=== PATIENT | female | born 1965 | race Caucasian/White ===

== ENCOUNTER 2016-08-30 09:04 | Inpatient (IN) | payer OTHER ==
[2016-08-30] MEDS ORDERED: NS 1,000 ML IV ONE (09:28)
[2016-08-30] MEDS ORDERED: HYDROmorphONE/DILAUDID 1 MG/ML SYR IVP ONE ×3 (09:28→19:00)
[2016-08-30] MEDS ORDERED: ONDANSETRON 4 MG/2 ML VIAL ONE (09:30)
[2016-08-30 09:36] LABS: % IMMATURE GRANULYOCYTES 0.2 % (0.0-1.1); ABSOLUTE IMMATURE GRANULOCYTES 0.02 10^3/uL (0.00-0.10); ADD DIFF? NO; ADD MORPH? NO; ADD SCAN? NO; ATYPICAL LYMPHOCYTE FLAG 0 (0-99); FRAGMENT RBC FLAG 0 (0-99); HEMATOCRIT 40.9 % (38.0-47.0); HEMOGLOBIN 13.8 g/dL (12.6-16.3); LEFT SHIFT FLG 90 (0-99); LIPEMIA HEMOLYSIS FLAG 80 (0-99); MEAN CELL HEMOGLOBIN 32.5 pg (27.9-34.1); MEAN CELL HEMOGLOBIN CONCENTR. 33.7 g/dL (32.4-36.7); MEAN CELL VOLUME 96.5 fL (81.5-99.8); MEAN PLATELET VOLUME 9.9 fL (8.7-11.7); PLATELET CLUMPS FLAG 0 (0-99); PLATELET COUNT 179 10^3/uL (150-400); RED BLOOD CELL COUNT 4.24 10^6/uL (4.18-5.33); RED CELL DISTRIBUTION WIDTH 12.6 % (11.5-15.2)
[2016-08-30] MEDS ORDERED: ONDANSETRON 4 MG/2 ML VIAL IVP ONE (09:40)
[2016-08-30 09:57] LABS: ALANINE AMINOTRANSFERASE 34 IU/L (9-52); ALBUMIN 4.1 g/dL (3.5-5.0); ALKALINE PHOSPHATASE 67 IU/L (38-126); ANION GAP 9 mEq/L (8-16); ASPARTATE AMINOTRANSFERASE 24 IU/L (14-46); BILIRUBIN,TOTAL 1.3 mg/dL (0.1-1.4); BILIRUBIN-CONJUGATED 0.3 mg/dL (0.0-0.5); CALCIUM 9.1 mg/dL (8.5-10.4); CARBON DIOXIDE 22 mEq/l (22-31); CHLORIDE 108 mEq/L (97-110); CREATININE 0.7 mg/dL (0.6-1.0); GLOMERULAR FILTRATION RATE > 60; GLUCOSE 98 mg/dL (70-100); SODIUM 139 mEq/L (134-144)
[2016-08-30] MEDS ORDERED: IOPAMIDOL (ISOVUE-300) 100 ML BTL IV ONE (10:06)
[2016-08-30] MEDS ORDERED: ERTAPENEM 1 GM in NS 100 ML IV ONE (10:52)
[2016-08-30] MEDS ORDERED: ALBUTEROL 60 PUFFS/8 GM MDI IH PRN (12:52)
[2016-08-30] MEDS: KETOROLAC 30 MG/1 ML SDV IVP PRN ×2 (13:06→19:25)
[2016-08-30] MEDS: LR 1,000 ML IV SCH (13:07)
[2016-08-30] MEDS ORDERED: ALBUTEROL 200 PUFFS/18 GM MDI IH PRN (13:26)
[2016-08-30] MEDS: HYDROmorphONE/DILAUDID 1 MG/ML SYR IVP PRN ×4 (13:32→22:35)
--- NOTE | 2016-08-30 13:34 | EDPHY ---
H & P Stated Complaint: abd pain - Personal History LMP (Females 10-55): Over 28 Days Ago Current Tetanus Diphtheria and Acellular Pertussis (TDAP): Yes - Medical/Surgical History Hx Asthma: Yes Hx Chronic Respiratory Disease: No Hx Diabetes: No Hx Cardiac Disease: No Hx Renal Disease: No Hx Cirrhosis: No Hx Alcoholism: No Hx HIV/AIDS: No Hx Splenectomy or Spleen Trauma: No Other PMH: EXERCISE INDUCED ASTHMA/SHOULDER SURGERY, diverticulitis - Social History Smoking Status: Never smoked HPI/ROS: Chief complaint: Abdominal pain History of present illness: This is a 51-year-old female who presents to the emergency department for evaluation of abdominal pain. Patient reports the onset of symptoms over the last 2-3 days. Initially diffuse pain. The pain is now located to the right lower quadrant. She has had associated diarrhea. She denies precipitating factors. She denies alleviating factors. She was in [place] when symptoms began. She has a history of diverticulitis and this is similar in presentation. Review of systems: A 10 point review of systems was obtained and other than described above was negative (Oren Melchor) - Physical Exam Exam: General Appearance: Alert, nontoxic. Eyes: Pupils equal and round no pallor or injection. ENT, Mouth: Mucous membranes moist. Respiratory: There are no retractions, lungs are clear to auscultation. Cardiovascular: Regular rate and rhythm. Gastrointestinal: Bowel sounds normal. Abdomen is tender most pronounced in the right lower quadrant. Mild guarding. Neurological: Alert and oriented x4. Strength and sensation intact and symmetrical. Skin: Warm and dry, no rashes. Musculoskeletal: Neck is supple nontender. Extremities are symmetrical, full range of motion. Psychiatric: Patient is oriented X 3, there is no agitation. (Oren Melchor) Constitutional: Initial Vital Signs Temperature (C) 36.9 C 08/30/16 09:10 Heart Rate 94 08/30/16 09:10 Respiratory Rate 16 08/30/16 09:10 Blood Pressure 109/74 08/30/16 09:10 O2 Sat (%) 93 08/30/16 09:10 O2 Delivery Mode Room Air Allergies/Adverse Reactions: No Known Allergies Allergy (Unverified 06/21/15 12:14) Home Medications: Medication Instructions Recorded Herbals/Supplements -Info Only 1 ea PO DAILY 08/30/16 Montelukast Sodium [Singulair 10 10 mg PO HS 08/30/16 mg (*)] Medical Decision Making - Diagnostics Imaging: Discussed imaging studies w/ resistance welding machine operator Radiologist - Diagnostics Imaging Results: Imaging Impressions Abdomen CT 08/30/16 10:02 Impression: 1. Colonic perforation involving the ascending colon with pericolonic inflammatory changes, circumferential wall thickening, and diverticulosis, probably representing acute diverticulitis with microperforation. 2. Recommend surgical consult and follow-up colonoscopy to rule out less likely possibility of colon carcinoma or nonspecific colitis. 3. Sigmoid diverticulosis. 4. No drainable abscess.. Findings and recommendations discussed with emergency department physician school bus driver/teacher assistant, Oren Melchor PA-C at 1058 hours on August 30, 2016. Final report concurs with initial preliminary interpretation. ED Course/Re-evaluation: Patient is seen under the supervision of my secondary supervising physician Dr. Hailey Mcfalrane. Patient presents to the emergency department for evaluation of abdominal pain. Ultimately there is concern for diverticulitis with perforation. On-call surgery, Dr. Calvillo is consulted. He is comfortable with patient being placed on Invanz. He will admit the patient for further evaluation and care. (Oren Melchor) Differential Diagnosis: Included but not limited to diverticulitis, colitis, appendicitis, bowel obstruction, bowel perforation (Oren Melchor) Other Provider: The patient was evaluated and managed by the Physician Looper Operator/ Nurse Practitioner. I discussed the patient's presentation and course with the midlevel provider with them and agree with the evaluation. My co-signature indicates that I have reviewed this chart and I agree with the findings and plan of care as documented. I am the secondary supervising physician. (Hailey Mcfarlane) - Data Points Laboratory Results: Laboratory Results 08/30/16 09:23 08/30/16 09:23 08/30/16 08/30/16 08/30/16 09:23 09:23 09:23 WBC 9.91 10^3/uL H 10^3/uL (3.80-9.50) RBC 4.24 10^6/uL 10^6/uL (4.18-5.33) Hgb 13.8 g/dL g/dL (12.6-16.3) Hct 40.9 % % (38.0-47.0) MCV 96.5 fL fL (81.5-99.8) MCH 32.5 pg pg (27.9-34.1) MCHC 33.7 g/dL g/dL (32.4-36.7) RDW 12.6 % % (11.5-15.2) Plt Count 179 10^3/uL 10^3/uL (150-400) MPV 9.9 fL fL (8.7-11.7) Neut % (Auto) 81.2 % H % (39.3-74.2) Lymph % (Auto) 7.8 % L % (15.0-45.0) [place] % (Auto) 9.3 % % (4.5-13.0) Eos % (Auto) 1.2 % % (0.6-7.6) Baso % (Auto) 0.3 % % (0.3-1.7) Nucleat RBC Rel Count 0.0 % % (0.0-0.2) Absolute Neuts (auto) 8.05 10^3/uL H 10^3/uL (1.70-6.50) Absolute Lymphs (auto) 0.77 10^3/uL L 10^3/uL (1.00-3.00) Absolute Monos (auto) 0.92 10^3/uL H 10^3/uL (0.30-0.80) Absolute Eos (auto) 0.12 10^3/uL 10^3/uL (0.03-0.40) Absolute Basos (auto) 0.03 10^3/uL 10^3/uL (0.02-0.10) Absolute Nucleated RBC 0.00 10^3/uL 10^3/uL (0-0.01) Immature Gran % 0.2 % % (0.0-1.1) Immature Gran # 0.02 10^3/uL 10^3/uL (0.00-0.10) Sodium 139 mEq/L mEq/L (134-144) Potassium 4.0 mEq/L mEq/L (3.5-5.2) Chloride 108 mEq/L mEq/L (97-110) Carbon Dioxide 22 mEq/l mEq/l (22-31) Anion Gap 9 mEq/L mEq/L (8-16) BUN 9 mg/dL mg/dL (7-23) Creatinine 0.7 mg/dL mg/dL (0.6-1.0) Estimated GFR > 60 Glucose 98 mg/dL mg/dL (70-100) Calcium 9.1 mg/dL mg/dL (8.5-10.4) Total Bilirubin 1.3 mg/dL mg/dL (0.1-1.4) Conjugated Bilirubin 0.3 mg/dL mg/dL (0.0-0.5) Unconjugated Bilirubin 1.0 mg/dL mg/dL (0.0-1.1) AST 24 IU/L IU/L (14-46) ALT 34 IU/L IU/L (9-52) Alkaline Phosphatase 67 IU/L IU/L (38-126) Total Protein 7.0 g/dL g/dL (6.3-8.2) Albumin 4.1 g/dL g/dL (3.5-5.0) Lipase 31.0 IU/L IU/L (23-300) Beta HCG, Qual NEGATIVE Medications Given: Discontinued Medications Hydromorphone HCl (Dilaudid) 0.5 mg IVP EDNOW ONE Stop: 08/30/16 09:29 Last Admin: 08/30/16 09:39 Dose: 0.5 mg Hydromorphone HCl (Dilaudid) 0.5 mg IVP EDNOW ONE Stop: 08/30/16 11:07 Last Admin: 08/30/16 11:15 Dose: 0.5 mg Sodium Chloride (Ns) 1,000 mls @ 0 mls/hr IV ONCE ONE PRN Reason: Wide Open Stop: 08/30/16 09:29 Last Admin: 08/30/16 09:39 Dose: 1,000 mls Ertapenem 1 gm/ Sodium (Chloride) 100 mls @ 200 mls/hr IV EDNOW ONE PRN Reason: Protocol Stop: 08/30/16 11:21 Last Admin: 08/30/16 11:47 Dose: 100 mls Ondansetron HCl (Zofran) 4 mg IVP EDNOW ONE Stop: 08/30/16 09:41 Last Admin: 08/30/16 09:41 Dose: 4 mg Departure - Departure Disposition: [facility] Acute Clinical Impression: Diverticulitis Qualifiers: Diverticulitis site: large intestine Diverticulitis bleeding: without bleeding Diverticulitis complication: with perforation Qualified Code(s): K57.20 - Diverticulitis of large intestine with perforation and abscess without bleeding Condition: Fair
--- NOTE | 2016-08-30 13:40 | GHP ---
[f rep st] PREOP HISTORY AND PHYSICAL DATE OF ADMISSION: 08/30/2016 ADMITTING DIAGNOSIS: Acute diverticulitis with focal contained perforation. HISTORY: The patient is a 51-year-old female who had her first colonoscopy 6 years ago. At that time, she was discovered to have diverticulosis. She had diverticulitis in the sigmoid region 1 year ago. She appropriately had a colonoscopy to rule out a neoplastic process. An adenomatous polyp was discovered by her report. One week ago, she had the onset of epigastric discomfort, and 4 days ago became worse and shifted to the right upper quadrant. She has stools on a daily basis , though today's stool was minimal. There was no change in her symptoms with moving her bowels. She denies fevers or chills. She presented to the ER for evaluation. A CT was performed, which showed a focal area of diverticulitis with a calcified stone in the diverticulum and focal contained perforation. I was asked to see her for possible admission and antibiotic therapy. SOCIAL HISTORY: She smoked from ages [age], at a rate of 1 pack per day, and now, does smoke very rarely on an intermittent basis. She does drink 2-3 glasses of wine per week. ALLERGIES: She has no known drug allergies. MEDICATIONS: Include Singulair for exercise-induced asthma, and she used an Albuterol inhaler p.r.n. (once within the last year). She also takes herbal supplements. SURGERIES: Include treatment of an impingement syndrome in her right shoulder. She has also had 3 dental extractions. There is no history of rheumatic fever, tuberculosis hepatitis, transfusions or HIV. REVIEW OF SYSTEMS: She wears lenses for visual correction. She has cataracts, but they are not at the level which would require surgery yet. She has chronic sinusitis. She has dental crowns and a right upper partial bridge. She has gastroesophageal reflux disease 3-4 times per week. She has had an upper endoscopy within the year. She has had Maggie thyroiditis for several years. She checks her TSH every 6 months. She has not required supplementation yet. Her last mammogram was in October of this year and is okay. Her last Pap smear was within the year. There are limits on her activities. No history of steroid use. PHYSICAL EXAMINATION: GENERAL: She is awake, alert, in no acute distress at this time. She is in mild distress with discomfort in the right upper quadrant. NEUROLOGIC: Her skull is normocephalic and atraumatic. There are no focal lateralizing neurologic findings. NECK: Unremarkable. Thyroid is difficult to palpate. There are no carotid bruits. No cervical, supraclavicular, axillary, or inguinal lymphadenopathy. LUNGS: Clear to auscultation. CARDIAC: Shows S1, S2 to be normal with normal split of S2, without murmurs, rubs, or gallops. ABDOMEN: Minimally distended. She has hypoactive bowel sounds present. She is tender with cough; in the right upper quadrant, at 7/10. To palpation her abdominal tenderness is as follows: left upper quadrant is 1, left midabdomen is 1, left lower quadrant is 1, epigastrium is 1, periumbilical area is 1, suprapubic area is 2, right upper quadrant is 4, right midabdomen is 5, over the iliac crest is 6, right lower quadrant is 1. LABORATORY DATA: White blood cell count is 9.9 with 81% neutrophils, hematocrit is 40, platelet count is 179. Her electrolytes were unremarkable. Beta hCG is negative. The CT has the findings listed above. IMPRESSION: Focal contained perforation without a drainable collection. Surgical intervention is not indicated. PLAN: I will plan to continue intravenous antibiotic therapy and n.p.o. status. The patient understands the plan of care and agrees to proceed as outlined. I have mentioned to her that a followup colonoscopy in 8 weeks after resolution of symptoms would be appropriate again. She understands, as does her . /[id number]/MODL MTDD
[2016-08-30] MEDS: ACETAMINOPHEN 650 MG SUPP PR SCH ×2 (14:38→22:25)
[2016-08-30 15:55] LABS: COLOR YELLOW; LEUKOCYTE ESTERASE,URINE NEGATIVE (NEGATIVE); NITRITE,URINE NEGATIVE (NEGATIVE)
[2016-08-30] MEDS: MONTELUKAST SODIUM 10 MG TAB PO SCH (21:32)
[2016-08-30] MEDS: ONDANSETRON 4 MG/2 ML VIAL IVP PRN (21:32)
[2016-08-31] MEDS: HYDROmorphONE/DILAUDID 1 MG/ML SYR IVP PRN ×5 (01:02→21:42)
[2016-08-31] MEDS: LR 1,000 ML IV SCH ×3 (01:05→21:40)
[2016-08-31] MEDS: KETOROLAC 30 MG/1 ML SDV IVP PRN ×4 (04:05→21:42)
[2016-08-31 05:15] LABS: % IMMATURE GRANULYOCYTES 0.4 % (0.0-1.1); ABSOLUTE IMMATURE GRANULOCYTES 0.04 10^3/uL (0.00-0.10); ADD DIFF? NO; ADD MORPH? NO; ADD SCAN? YES; ATYPICAL LYMPHOCYTE FLAG 0 (0-99); FRAGMENT RBC FLAG 0 (0-99); HEMATOCRIT 35.1 % (38.0-47.0); HEMOGLOBIN 11.5 g/dL (12.6-16.3); LIPEMIA HEMOLYSIS FLAG 80 (0-99); MEAN CELL HEMOGLOBIN 32.7 pg (27.9-34.1); MEAN CELL HEMOGLOBIN CONCENTR. 32.8 g/dL (32.4-36.7); MEAN CELL VOLUME 99.7 fL (81.5-99.8); MEAN PLATELET VOLUME 10.4 fL (8.7-11.7); PLATELET CLUMPS FLAG 10 (0-99); PLATELET COUNT 150 10^3/uL (150-400); RED BLOOD CELL COUNT 3.52 10^6/uL (4.18-5.33); RED CELL DISTRIBUTION WIDTH 12.8 % (11.5-15.2)
[2016-08-31 05:18] LABS: LEFT SHIFT FLG 160 (0-99)
[2016-08-31 05:26] LABS: ANION GAP 9 mEq/L (8-16); CALCIUM 8.4 mg/dL (8.5-10.4); CARBON DIOXIDE 21 mEq/l (22-31); CHLORIDE 110 mEq/L (97-110); CREATININE 0.6 mg/dL (0.6-1.0); GLOMERULAR FILTRATION RATE > 60; GLUCOSE 67 mg/dL (70-100); POTASSIUM 4.2 mEq/L (3.5-5.2); SODIUM 140 mEq/L (134-144)
[2016-08-31 05:34] LABS: SCAN NEGATIVE
[2016-08-31] MEDS: ACETAMINOPHEN 650 MG SUPP PR SCH ×3 (05:50→21:43)
[2016-08-31] MEDS: ERTAPENEM 1 GM in NS 100 ML IV SCH (08:00)
[2016-08-31] MEDS: ONDANSETRON 4 MG/2 ML VIAL IVP PRN ×2 (08:44→20:45)
--- NOTE | 2016-08-31 14:58 | SOAPPROG ---
SOAP Progress Note Assessment/Plan: Assessment/Plan: Right sided colon perforation contained Pain controlled with current regimen OOB NPO Invanz WBC 9.[address] reviewed worse than 06/11 RRR CTA R flank/RLQ tenderness moderate. No peritoneal signs Contained perforation Requested colonoscopy from last year Interval colectomy versus watchful waiting Continue urrent care 08/31/16 14:56 Objective: Vital Signs Temp Pulse Resp BP Pulse Ox 36.9 C 65 16 115/66 91 L 08/31/16 10:58 08/31/16 10:58 08/31/16 10:58 08/31/16 10:58 08/31/16 10:58 Laboratory Results 08/31/16 04:22 08/31/16 04:22 08/30/16 08/31/16 09/01/16 05:59 05:59 05:59 Intake Total 1263 Output Total 400 300 Balance 863 -300 ICD10 Worksheet Patient Problems: Problems Problem Status Onset Diverticulitis Acute
[2016-08-31] MEDS: MONTELUKAST SODIUM 10 MG TAB PO SCH (20:00)
[2016-08-31] MEDS: DOCUSATE SODIUM 100 MG CAP PO SCH ×2 (20:40→21:44)
[2016-09-01] MEDS: HYDROmorphONE/DILAUDID 1 MG/ML SYR IVP PRN ×3 (01:16→21:25)
[2016-09-01] MEDS: ONDANSETRON 4 MG/2 ML VIAL IVP PRN ×3 (01:17→21:19)
[2016-09-01] MEDS: KETOROLAC 30 MG/1 ML SDV IVP PRN ×4 (03:51→23:58)
[2016-09-01 05:03] LABS: % IMMATURE GRANULYOCYTES 0.3 % (0.0-1.1); ABSOLUTE IMMATURE GRANULOCYTES 0.02 10^3/uL (0.00-0.10); ADD DIFF? NO; ADD MORPH? NO; ADD SCAN? NO; ATYPICAL LYMPHOCYTE FLAG 0 (0-99); FRAGMENT RBC FLAG 0 (0-99); HEMATOCRIT 33.6 % (38.0-47.0); LEFT SHIFT FLG 70 (0-99); LIPEMIA HEMOLYSIS FLAG 80 (0-99); MEAN CELL HEMOGLOBIN 33.1 pg (27.9-34.1); MEAN CELL HEMOGLOBIN CONCENTR. 32.7 g/dL (32.4-36.7); MEAN CELL VOLUME 101.2 fL (81.5-99.8); MEAN PLATELET VOLUME 10.3 fL (8.7-11.7); PLATELET CLUMPS FLAG 10 (0-99); PLATELET COUNT 148 10^3/uL (150-400); RED BLOOD CELL COUNT 3.32 10^6/uL (4.18-5.33); RED CELL DISTRIBUTION WIDTH 12.9 % (11.5-15.2)
[2016-09-01 06:22] LABS: ANION GAP 10 mEq/L (8-16); CALCIUM 8.3 mg/dL (8.5-10.4); CARBON DIOXIDE 17 mEq/l (22-31); CHLORIDE 112 mEq/L (97-110); CREATININE 0.6 mg/dL (0.6-1.0); GLOMERULAR FILTRATION RATE > 60; GLUCOSE 59 mg/dL (70-100); POTASSIUM 4.2 mEq/L (3.5-5.2); SODIUM 139 mEq/L (134-144)
[2016-09-01] MEDS: LR 1,000 ML IV SCH ×2 (06:26→17:45)
[2016-09-01] MEDS: ACETAMINOPHEN 650 MG SUPP PR SCH ×3 (06:26→21:35)
[2016-09-01] MEDS: ERTAPENEM 1 GM in NS 100 ML IV SCH (09:06)
[2016-09-01] MEDS: DOCUSATE SODIUM 100 MG CAP PO SCH ×2 (09:08→21:35)
--- NOTE | 2016-09-01 11:27 | SOAPPROG ---
SOAP Progress Note Assessment/Plan: Assessment/Plan: Right sided colon perforation contained Pain controlled with current regimen OOB NPO Invanz WBC 7 with left shift Colonoscopy reviewed. Diverticulosis most likely cause of pathology RRR CTA R flank/RLQ tenderness moderate. No peritoneal signs Contained perforation Adv to clear liquid Interval colectomy versus watchful waiting Continue current care D/C on augmentin with f/u in office 08/31/16 14:56 09/01/16 11:25 Objective: Vital Signs Temp Pulse Resp BP Pulse Ox 36.9 C 62 18 113/66 95 09/01/16 07:35 09/01/16 07:35 09/01/16 07:35 09/01/16 07:35 09/01/16 07:35 Laboratory Results 09/01/16 04:21 09/01/16 04:21 08/31/16 09/01/16 09/02/16 05:59 05:59 05:59 Intake Total 1263 2296 275 Output Total 400 1250 600 Balance 863 1046 -325 ICD10 Worksheet Patient Problems: Problems Problem Status Onset Diverticulitis Acute
[2016-09-01] MEDS: ACETAMINOPHEN 325 MG TAB PO PRN ×2 (15:45→21:18)
[2016-09-01] MEDS: MONTELUKAST SODIUM 10 MG TAB PO SCH (21:35)
[2016-09-01 21:38] VITALS: RESP 16; TEMP 98.1
[2016-09-01 21:42] LABS: OCCULT BLOOD FECES NEGATIVE (NEGATIVE)
[2016-09-01 21:54] LABS: O/P DESCRIPTION SOFT BROWN STOOL; O/P DIRECT NONE SEEN (NONE SEEN)
[2016-09-02] MEDS: ACETAMINOPHEN 650 MG SUPP PR SCH (05:27)
[2016-09-02] MEDS: LR 1,000 ML IV SCH (05:27)
[2016-09-02 05:28] LABS: % IMMATURE GRANULYOCYTES 0.6 % (0.0-1.1); ABSOLUTE IMMATURE GRANULOCYTES 0.03 10^3/uL (0.00-0.10); ADD DIFF? NO; ADD MORPH? NO; ADD SCAN? NO; ATYPICAL LYMPHOCYTE FLAG 10 (0-99); FRAGMENT RBC FLAG 0 (0-99); HEMATOCRIT 33.7 % (38.0-47.0); HEMOGLOBIN 10.8 g/dL (12.6-16.3); LEFT SHIFT FLG 50 (0-99); LIPEMIA HEMOLYSIS FLAG 80 (0-99); MEAN CELL HEMOGLOBIN 32.7 pg (27.9-34.1); MEAN CELL VOLUME 102.1 fL (81.5-99.8); MEAN PLATELET VOLUME 10.3 fL (8.7-11.7); PLATELET CLUMPS FLAG 10 (0-99); PLATELET COUNT 160 10^3/uL (150-400); RED CELL DISTRIBUTION WIDTH 12.5 % (11.5-15.2)
[2016-09-02] MEDS: ONDANSETRON 4 MG/2 ML VIAL IVP PRN ×2 (05:30→11:03)
[2016-09-02] MEDS: KETOROLAC 30 MG/1 ML SDV IVP PRN (05:30)
[2016-09-02 05:43] LABS: ANION GAP 10 mEq/L (8-16); CALCIUM 8.1 mg/dL (8.5-10.4); CARBON DIOXIDE 17 mEq/l (22-31); CHLORIDE 111 mEq/L (97-110); CREATININE 0.6 mg/dL (0.6-1.0); GLOMERULAR FILTRATION RATE > 60; GLUCOSE 48 mg/dL (70-100); POTASSIUM 4.2 mEq/L (3.5-5.2); SODIUM 138 mEq/L (134-144)
[2016-09-02] MEDS: ERTAPENEM 1 GM in NS 100 ML IV SCH (08:33)
[2016-09-02] MEDS: DOCUSATE SODIUM 100 MG CAP PO SCH (08:38)
[2016-09-02 09:40] VITALS: BP 115/63; PULSE 57; O2SAT 97
[2016-09-02 12:25] LABS: O/P CONCENTRATION NONE SEEN (NONE SEEN)
[2016-09-02 16:30] LABS: O/P TRICHROME NONE SEEN (NONE SEEN)
== END 2016-09-02 12:20 | disposition home or self-care (01) | DRG 392 ==
LOC: F3E 12:16
PROVIDERS: ADMIT Surgery; ATTEND Surgery
DX: K57.80 Diverticulitis of intestine, part unspecified, with perforation and abscess without bleeding (principal); Z87.891 Personal history of nicotine dependence; K21.9 Gastro-esophageal reflux disease without esophagitis
CPT/HCPCS: 96365; J1170; J1335; J1885; J2405; Q9967

== ENCOUNTER → 2017-01-08 | Outpatient (CLI) | payer OTHER | LOC: FIMAGING 14:34 | PROVIDERS: ATTEND Internal Medicine | DX: Z12.31 Encounter for screening mammogram for malignant neoplasm of breast (principal) | CPT/HCPCS: G0202 ==

== ENCOUNTER → 2017-01-21 | Outpatient (CLI) | payer OTHER ==
[~2017-01-21] MED LIST: IOPAMIDOL (ISOVUE-300) 100 ML BTL ONE
== END ==
LOC: FIMAGING 12:12
PROVIDERS: ATTEND Surgery
DX: K57.92 Diverticulitis of intestine, part unspecified, without perforation or abscess without bleeding (principal); K76.9 Liver disease, unspecified; K59.00 Constipation, unspecified
CPT/HCPCS: Q9967

== ENCOUNTER → 2017-09-23 | Outpatient (CLI) | payer OTHER | LOC: FIMAGING 13:02 | PROVIDERS: ATTEND Obstetrics & Gynecology Gynecology | DX: N95.0 Postmenopausal bleeding (principal); D25.9 Leiomyoma of uterus, unspecified; N83.201 Unspecified ovarian cyst, right side ==

== ENCOUNTER → 2018-06-03 | Outpatient (CLI) | payer OTHER | LOC: BMCIMAGING 13:27 | PROVIDERS: ATTEND Obstetrics & Gynecology Gynecology | DX: E03.9 Hypothyroidism, unspecified (principal); L65.9 Nonscarring hair loss, unspecified; E04.2 Nontoxic multinodular goiter | CPT/HCPCS: 76536-PO ==

== ENCOUNTER → 2018-08-23 | Outpatient (CLI) | payer OTHER | LOC: FIMAGING 09:53 | PROVIDERS: ATTEND Obstetrics & Gynecology Gynecology | DX: N95.0 Postmenopausal bleeding (principal); D25.9 Leiomyoma of uterus, unspecified ==

== ENCOUNTER → 2018-09-01 | Outpatient (CLI) | payer OTHER | LOC: FIMAGING 14:09 | PROVIDERS: ATTEND Internal Medicine | DX: Z12.31 Encounter for screening mammogram for malignant neoplasm of breast (principal) ==